=== PATIENT | female | born 1995 | race Caucasian/White ===

== ENCOUNTER 2016-05-10 21:28 | Emergency (ER) | payer OTHER ==
[~2016-05-10] VITALS: Ht 152.4 cm; Wt 77.0 kg
[2016-05-10 21:31] VITALS: BP 145/97; PULSE 98; RESP 16; TEMP 98.4; O2SAT 97
[2016-05-10] MEDS ORDERED: PRED-503 PO (21:52)
[2016-05-10] MEDS ORDERED: ALBU6.7H INH (21:52)
--- NOTE | 2016-05-10 21:56 | PD ---
HPI Chief Complaint: Respiratory Symptoms Time Seen by Provider: 21:53 Travel History International Travel<30 days: No Contact w/Intl Traveler<30days: No Traveled to known affect area: No History of Present Illness HPI 21-year-old black female presents to emergency Department with a 24-hour history of laryngitis, shortness of breath and tightness in her chest. Patient has history of asthma and is out of her medications. She states that she had a sore throat 2 weeks ago. She denies any fever or chills. She denies any sputum production. No nausea vomiting. No abdominal pain or diarrhea. No dysuria or frequency. Symptoms are mild to moderate. Worse with activity. PFSH Past Medical History Narrative Medical Asthma Respiratory: Yes (ASTHMA/BRONCHITIS) Tetanus Vaccination: < 5 Years Past Surgical History Surgical History: No Previous Surgery Social History Alcohol Use: No Tobacco Use: No Substance Use: No Allergies-Medications (Allergen,Severity, Reaction): Coded Allergies: No Known Allergies (Unverified , 05/10/16) Reported Meds & Prescriptions Reported Meds & Active Scripts Active Proventil Hfa 6.7 GM Inh (Albuterol Sulfate) 90 Mcg/Act Aer 2 Puff INH Q4-6H PRN Deltasone (Prednisone) 20 Mg Tab 20 Mg PO TID Review of Systems Except as stated in HPI: all other systems reviewed are Neg Physical Exam Narrative GENERAL: Well-developed, well-nourished in no acute distress. Nontoxic appearing. Patient has a hoarse voice but not hot potato HEAD: Normocephalic, atraumatic. EYES: Pupils equal round and reactive. Extraocular motions intact. No scleral icterus. No injection or drainage. ENT: TMs clear without erythema. The external auditory canals clear. Nose: clear . Posterior pharynx is pink and moist. No tonsillar edema or exudate. Uvula midline. Airway patent. NECK: Trachea midline.Supple, nontender, moves head freely. No central bony tenderness or spasm. CARDIOVASCULAR: Regular rate and rhythm without murmurs, gallops, or rubs. RESPIRATORY: Clear to auscultation. Breath sounds equal bilaterally. No wheezes , rales, or rhonchi. GASTROINTESTINAL: Abdomen soft, non-tender, nondistended. No hepato-splenomegaly , or palpable masses. No guarding. EXTREMITIES: No clubbing, cyanosis, or edema. No joint tenderness, effusion, or edema noted. BACK: Nontender without deformity or crepitance. No flank tenderness. Data Data Last Documented VS Vital Signs Date Time Temp Pulse Resp B/P Pulse Ox O2 Delivery O2 Flow Rate FiO2 05/10/16 21:31 98.4 98 16 145/97 97 Room Air Orders Prednisone (Deltasone) (05/10/16 22:00) MDM Medical Decision Making Medical Screen Exam Complete: Yes Emergency Medical Condition: Yes Medical Record Reviewed: Yes Differential Diagnosis MDM: High Differential diagnoses: Strep throat, viral pharyngitis, mono, laryngitis, asthma Narrative Course Patient's given 60 mg prednisone by mouth. This is laryngitis, asthma exacerbation Diagnosis Primary Impression: Laryngitis Additional Impression: Asthma exacerbation Patient Instructions: General Instructions Departure Forms: Tests/Procedures, Work Release Special Instructions: No work 05/11/16 Additional Instructions: Rest. Increase fluids. Tylenol and Advil. prednisone, and albuterol. Followup with your Dr. in one week. Return to the ER for any problems. Med/Other Pt SpecificInfo: Prescription(s) given Scripts Albuterol 6.7 GM Inh (Proventil Hfa 6.7 GM Inh)90 Mcg/Act Aer2 Puff INH Q4-6H PRN (SHORTNESS OF BREATH) #1 INHALER Prov:Shashi Sanchez MD 05/10/16 Prednisone (Deltasone)20 Mg Tab20 Mg PO TID #15 TAB Prov:Shashi Sanchez MD 05/10/16 Disposition: 01 DISCHARGE HOME Condition: Stable Austen Leung May 10, 2016 21:56
[2016-05-10] MEDS ORDERED: predniSONE 20 MG TAB PO ONE (22:00)
== END 2016-05-10 22:23 | disposition home or self-care (01) ==
LOC: NETRI 21:28
DX: J04.0 Acute laryngitis (principal); J45.901 Unspecified asthma with (acute) exacerbation
CPT/HCPCS: 99283; J7512